=== PATIENT | male | born 1955 | race American Indian/Alaskan Native ===

== ENCOUNTER 2017-02-04 11:55 | Inpatient (IN) | payer MEDICAID, OTHER ==
[2017-02-04 13:19] LABS: BASO % 0.2 % (0.0-2.0); EOS # 0.2 K/uL (0.0-0.7); EOS % 2.5 % (0.0-4.0); HEMOGLOBIN 12.4 g/dL (12.0-18.0); LYMPH # 2.3 K/uL (1.0-4.3); MEAN CELL VOLUME 96.6 fL (80.0-94.0); MEAN CORPUSCULAR HEMOGLOBIN 31.5 pg (27.0-31.0); MEAN CORPUSCULAR HGB CONC 32.6 g/dL (33.0-37.0); MEAN PLATELET VOLUME 7.9 fL (7.2-11.7); MONO # 0.6 K/uL (0.0-0.8); MONO % 7.6 % (0.0-10.0); NEUT # 5.3 K/uL (1.8-7.0); NEUT % 62.7 % (50.0-75.0); NRBC % 0.1 % (0.0-2.0); RBC 3.92 Mil/uL (4.40-5.90); RED CELL DISTRIBUTION WIDTH 13.5 % (11.5-14.5); WHITE BLOOD COUNT 8.4 K/uL (4.8-10.8)
[2017-02-04 13:29] LABS: ALBUMIN 4.2 g/dL (3.5-5.0)
[2017-02-04 13:32] LABS: ALT/SGPT 32 U/L (21-72); AST/SGOT 38 U/L (17-59); BLOOD UREA NITROGEN 17 mg/dL (9-20); GFR AFRICAN-AMERICAN > 60; GFR NON-AFRICAN AMERICAN 56
[2017-02-04 13:33] LABS: GRANULAR CAST 3 /lpf (0-1); LIPASE 56 U/L (23-300); SQUAMOUS EPITHIAL 2 /hpf (0-5); URINE BACTERIA RARE (<OCC); URINE BILIRUBIN NEGATIVE (NEGATIVE); URINE BLOOD 1+ (NEGATIVE); URINE CLARITY Hazy (Clear); URINE COLOR Yellow (YELLOW); URINE GLUCOSE (UA) NORMAL (Normal); URINE LEUKOCYTE ESTERASE NEG Leu/uL (Negative); URINE NITRATE NEGATIVE (NEGATIVE); URINE PROTEIN 1+ mg/dL (NEGATIVE)
[2017-02-04 13:34] LABS: BENZODIAZEPINES, UR NEGATIVE (NEGATIVE)
[2017-02-04 13:35] LABS: BARBITURATES, UR NEGATIVE (NEGATIVE)
[2017-02-04 13:38] LABS: PHENCYCLIDINE, UR NEGATIVE (NEGATIVE)
--- NOTE | 2017-02-04 13:48 | C.PDOC ---
History Of Present Illness 61 y/o male, PMHx of heroin abuse, presents to ED for heroin detox. Patient pre- screened prior to arrival. Admits to last use this morning. Otherwise, patient c /o mild nausea. Denies any other complaints. Time Seen by Provider: 02/04/17 13:20 Chief Complaint (Nursing): Substance Abuse History Per: Patient History/Exam Limitations: no limitations Onset/Duration Of Symptoms: Persistent Current Symptoms Are (Timing): Still Present Modifying Factor(s): Narcotics Recent travel outside of the [place]: No Past Medical History Reviewed: Historical Data, Nursing Documentation, Vital Signs - Medical History PMH: HTN Family History: States: Unknown Family Hx - Social History Hx Alcohol Use: Yes Hx Substance Use: Yes Review Of Systems Except As Marked, All Systems Reviewed And Found Negative. Constitutional: Negative for: Fever, Chills Cardiovascular: Negative for: Chest Pain, Palpitations Respiratory: Negative for: Cough, Shortness of Breath Gastrointestinal: Negative for: Nausea, Vomiting, Abdominal Pain, Diarrhea Skin: Negative for: Rash Neurological: Negative for: Headache Physical Exam - Physical Exam Appears: Non-toxic, No Acute Distress Skin: Warm, Dry Head: Atraumatic, Normacephalic Eye(s): bilateral: Normal Inspection, PERRL, EOMI Oral Mucosa: Moist Neck: Normal ROM, Supple Chest: Symmetrical Cardiovascular: Rhythm Regular Respiratory: Normal Breath Sounds, No Rales, No Rhonchi, No Wheezing Gastrointestinal/Abdominal: Soft, No Tenderness, No Guarding, No Rebound Back: Normal Inspection Extremity: Normal ROM, Capillary Refill (< 2 sec. ) Neurological/Psych: Oriented x3, Normal Speech, Normal Cognition ED Course And Treatment - Laboratory Results Result Diagrams: 02/04/17 13:12 02/04/17 13:12 Disposition - Disposition Disposition: HOSPITALIZED Disposition Time: 13:48 Condition: STABLE - Clinical Impression Clinical Impression: Drug abuse - Scribe Statement The provider has reviewed the documentation as recorded by the Nick Venegas Provider Attestation: All medical record entries made by the Lanibsarah were at my direction and personally dictated by me. I have reviewed the chart and agree that the record accurately reflects my personal performance of the history, physical exam, medical decision making, and the department course for this patient. I have also personally directed, reviewed, and agree with the discharge instructions and disposition. Decision To Admit - Pt Status Changed To: Hospital Disposition Of: Inpatient - Admit Certification Admit to Inpatient:: After my assessment, the patient will require hospitalization for at least two midnights. This is because of the severity of symptoms shown, intensity of services needed, and/or the medical risk in this patient being treated as an outpatient. - InPatient: Physician Admission Certification: I certify that this patient requires 2 or more midnights of care for the following reason:: needs inpatient detox - . Bed Request Type: Detox Patient Diagnosis: Drug abuse
[2017-02-04 14:11] LABS: OPIATES, UR POSITIVE (NEGATIVE)
[2017-02-04] MEDS ORDERED: Potassium Chloride 20 mEq/15 ml LIQ UD PO STA (14:26)
[2017-02-04] MEDS ORDERED: Potassium Chloride 20 mEq ER Tab PO ONE (15:00)
[2017-02-04] MEDS ORDERED: Aluminum Hydroxide/Magnesium Hydroxide Susp (30 mL) PO PRN (16:35)
[2017-02-04] MEDS ORDERED: Buprenorphine Hydrochloride 2 mg SL ONE ×2 (20:38→21:59)
[2017-02-04] MEDS ORDERED: Buprenorphine Hydrochloride 2 mg SL SCH (20:45)
[2017-02-05] MEDS: Buprenorphine Hydrochloride 2 mg SL SCH (10:09)
--- NOTE | 2017-02-05 10:54 | PCM.PSYCH ---
Initial Psychiatric Evaluation - Initial Psychiatric Evaluation Type of Admission: Voluntary Legal Status: Capacity Chief Complaint (in patient's own words): "I'm tired of this" History of Present Illness and Precipitating Events: The pt is seen, chart reviewed and case discussed. 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 This is his first treatment whatsoever. His longest sobriety was only 1 week. He also has xanax use "few times" and used to use cocaine "years ago" by snorting. He smokes 10 cig/d Denies alcohol, all other drugs and painkillers Past psych hx: Denies Family psych hx: Denies Medical hx: Umblical hernia, HTN Current Medications: Active Medications Generic Name Dose Route Start Last Admin Trade Name Freq PRN Reason Stop Dose Admin Al Hydrox/Mg Hydrox/Simethicone 30 ml 02/04/17 16:35 Maalox 30 Ml PO TID PRN Indigestion / Heartburn Amlodipine Besylate 5 mg 02/05/17 10:00 02/05/17 10:09 Norvasc PO 5 mg DAILY DIANE Administration Buprenorphine HCl 8 mg 02/05/17 10:00 02/05/17 10:09 Subutex SL 02/09/17 09:59 8 mg DAILY DIANE Administration Taper Clonidine HCl 0.1 mg 02/04/17 16:35 Catapres PO Q8 PRN COWS Score More or Equal to 5 Hydrochlorothiazide 25 mg 02/05/17 10:00 02/05/17 10:11 Hydrodiuril PO 25 mg DAILY DIANE Administration Hydroxyzine HCl 25 mg 02/04/17 16:17 Atarax PO Q4H PRN Anxiety Ibuprofen 600 mg 02/04/17 16:17 Motrin Tab PO Q6H PRN Pain, moderate (4-7) Lisinopril 20 mg 02/05/17 10:00 02/05/17 10:10 Zestril PO 20 mg DAILY DIANE Administration Loperamide HCl 2 mg 02/04/17 16:35 Imodium PO Q8 PRN Diarrhea Nicotine 1 patch 02/05/17 10:00 02/05/17 10:08 Nicoderm Cq TD 1 patch DAILY DIANE Administration Ondansetron HCl 4 mg 02/04/17 16:35 02/04/17 19:40 Zofran Tab PO 4 mg Q8 PRN Administration Nausea/Vomiting Trazodone HCl 50 mg 02/04/17 22:00 02/04/17 22:19 Desyrel PO 50 mg HS DIANE Administration Past Psychiatric History - Past Psychiatric History Previous Treatment History: None Pertinent Medical Hx (Current Medical&Sleep Prob, Allergies): Allergies Allergy/AdvReac Type Severity Reaction Status Date / Time No Known Allergies Allergy Verified 02/04/17 12:07 Lisinopril/Hydrochlorothiazide [Lisinopril-Hydrochlorothiazide 25 mg-20 mg] 1 tab PO DAILY 02/04/17 amLODIPine [Norvasc] 5 mg PO DAILY 02/04/17 Review of Systems - Neurological Neurological: UNREMARKABLE - Psychiatric Psychiatric: Abnormal Sleep Pattern, Anxiety, Difficulty Concentrating. absent : Depression, Hallucinations, Homicidal Ideation, Suicidal Ideation Mental Status Examination - Personal Presentation Personal Presentation: Looks stated age - Affect Affect: Constricted - Motor Activity Motor Activity: Calm - Reliability in Providing Information Reliability in Providing Information: Good - Speech Speech: Organized - Mood Mood: Anxious - Formal Thought Process Formal Thought Process: No Impairment - Cognitive Functions Orientation: Person, Place, Situation, Time Sensorium: Alert Attention/Concentration: Attentive Estimate of Intelligence: Average Judgement: Intact, as evidence by: Insight regarding need for hospitalization Memory: Recent intact, as evidence by: Ability to recall events of the day, Remote intact, as evidenced by: Abilit to recall sig. 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
[2017-02-05 12:09] LABS: GFR AFRICAN-AMERICAN > 60; GFR NON-AFRICAN AMERICAN 52
[2017-02-05 12:10] LABS: ALT/SGPT 25 U/L (21-72); AST/SGOT 29 U/L (17-59); BLOOD UREA NITROGEN 20 mg/dL (9-20); CALCIUM 9.8 mg/dl (8.6-10.4)
[2017-02-05 12:11] LABS: MAGNESIUM 2.2 mg/dL (1.6-2.3)
[2017-02-06] MEDS: Buprenorphine Hydrochloride 2 mg SL SCH (09:58)
[2017-02-06] MEDS ORDERED: Ergocalciferol 50,000 Intl Units Cap PO SCH (11:15)
[2017-02-06] MEDS ORDERED: Magnesium Hydroxide Susp 30 ml UD PO ONE (13:28)
--- NOTE | 2017-02-06 13:28 | PCM.PYCHPN ---
Psychiatric Progress Note - Psychiatric Progress Note Patient seen today, length of contact: 17 min Patient Chief Complaint: "I'm better today" Problems Identified/Issues Discussed: The pt is seen, chart reviewed, case discussed with staff. Support given, CBT and NM used briefly No new symptoms reported, improving slowly and needs more time No SEs from medications, risks discussed. After care discussed - considering rehab at [facility] c/o constipation Medication Change: Yes (detox changes daily) Medical Record Reviewed: Yes Mental Status Examination - Cognitive Function Orientation: Person, Place, Situation, Time Memory: Intact Attention: WNL Concentration: Poor Association: WNL Fund of Knowledge: WNL - Mood Mood: Anxious - Affect Affect: Constricted - Speech Speech: Appropriate - Formal Thought Process Formal Thought Process: No Impairment - Suicidal Ideation Suicidal Ideation: No - Homicidal Ideation Homicidal Ideation: No Goal/Treatment Plan - Goal/Treatment Plan Need for Continued Stay: Discharge may exacerbated symptoms, Severe functional impairment Progress Toward Problem(s) and Goals/Treatment Plan: Opioids: Subutex detox As needed meds Attend groups and activities Indiv tx with NM and CBT Refer to [facility] and rehab/IOP Sedatives: Monitor sxs NM for abstinence Tobacco: NM for abstinence Patch if needed MOM for constipation Estimated Date of D/C: 02/09/17 - Smoking Cessation Smoking Cessation Initiated: Yes
[2017-02-07] MEDS: Buprenorphine Hydrochloride 2 mg SL SCH (09:40)
[2017-02-07 15:43] VITALS: RESP 18
--- NOTE | 2017-02-07 17:28 | PCM.PYCHPN ---
Psychiatric Progress Note - Psychiatric Progress Note Patient seen today, length of contact: 15 min Patient Chief Complaint: "I'm OK" Problems Identified/Issues Discussed: The pt is seen, chart reviewed, case discussed with staff. Support given, CBT and VA used briefly No new symptoms reported, improving slowly and needs some more time No SEs from medications, risks discussed. After care discussed Medication Change: Yes (detox changes daily) Medical Record Reviewed: Yes Mental Status Examination - Cognitive Function Orientation: Person, Place, Situation, Time Memory: Intact Attention: WNL Concentration: Poor Association: WNL Fund of Knowledge: WNL - Mood Mood: Anxious - Affect Affect: Constricted - Speech Speech: Appropriate - Formal Thought Process Formal Thought Process: No Impairment - Suicidal Ideation Suicidal Ideation: No - Homicidal Ideation Homicidal Ideation: No Goal/Treatment Plan - Goal/Treatment Plan Need for Continued Stay: Discharge may exacerbated symptoms, Severe functional impairment Progress Toward Problem(s) and Goals/Treatment Plan: Opioids: Subutex detox As needed meds Attend groups and activities Indiv tx with VA and CBT Refer to [facility] and rehab/IOP Sedatives: Monitor sxs VA for abstinence Tobacco: VA for abstinence Patch if needed MOM for constipation Estimated Date of D/C: 02/09/17
[2017-02-08] MEDS: Buprenorphine Hydrochloride 2 mg SL SCH (09:29)
--- NOTE | 2017-02-08 14:05 | PCM.PYCHPN ---
Psychiatric Progress Note - Psychiatric Progress Note Patient seen today, length of contact: 15 min Patient Chief Complaint: I'm feeling much better with the treatment Problems Identified/Issues Discussed: Patient seen. Chart reviewed. Case discussed with the staff. Issues related to illness and treatment were discussed with the patient. Reported compliant with treatment with no adverse affects. Tolerating treatment very well. Reported feeling much better with no withdrawal symptoms. At the time of evaluation, patient was awake alert oriented 3, had no delusions, no auditory or visual hallucinations, no suicidal ideations or homicidal ideations. Medical Problems: None reported Diagnostic Results: Review DSM 5 Symptoms Update: Improvement with treatment Medication Change: No Medical Record Reviewed: Yes Mental Status Examination - Cognitive Function Orientation: Person, Place, Situation, Time Memory: Intact Attention: WNL Concentration: WNL Association: WN Fund of Knowledge: [facility] Decription of patient's judgement and insights: Fair - Mood Mood: Neutral - Affect Affect: Other (Appropriate) - Speech Speech: Appropriate - Formal Thought Process Formal Thought Process: No Impairment Psychotic Thoughts and Behaviors: None - Suicidal Ideation Suicidal Ideation: No - Homicidal Ideation Homicidal Ideation: No Goal/Treatment Plan - Goal/Treatment Plan Need for Continued Stay: Remain at risks for inpatient hospitalization, Discharge may exacerbated symptoms, Severe functional impairment Progress Toward Problem(s) and Goals/Treatment Plan: Patient education Supportive therapy Continue treatment as before Patient wants to go to [facility] after discharge from the hospital for follow-up care. Estimated Date of D/C: 02/09/17 - Smoking Cessation Smoking Cessation Initiated: Yes
--- NOTE | 2017-02-09 08:51 | PCM.PYCHDC ---
Mental Status Examination - Mental Status Examination Orientation: Person, Place, Situation, Time Memory: Intact Mood: Anxious Affect: Constricted Speech: Appropriate Attention: WNL Concentration: WNL Association: WNL Fund of Knowledge: WNL Formal Thought Process: No Impairment Suicidal Ideation: No Current Homicidal Ideation?: No Discharge Summary - Discharge Note Reason for Hospitalization: Opioid detox Consultations:: List each consultation separately and include: 1. Reason for request. 2. Findings. 3. Follow-up Summary of Hospital Course include:: 1. Description of specific treatment plan utilized for patients during their course of treatmen. 2. Summarize the time- course for resolution of acute symptoms and/or regressed behaviors. 3. Describe issues identified and worked on during hospitalization. 4. Describe medication utilized. 5. Describe medical problems identified and treated. 6. Reassessment of suicide risk Summary of Hospital Course: On admission: The pt is seen, chart reviewed and case discussed. 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 This is his first treatment whatsoever. His longest sobriety was only 1 week. He also has xanax use "few times" and used to use cocaine "years ago" by snorting. He smokes 10 cig/d Denies alcohol, all other drugs and painkillers Past psych hx: Denies Family psych hx: Denies Medical hx: Umblical hernia, HTN Hospital course: The pt was admitted and started on treatment with psychotherapy, support, psychoeducation and medications. HI and CBT used. The pt attended groups and activities, as well as milieu therapy. All the risks and benefits of medications are discussed and the patient understood and agreed. The pt improved with the treatments provided. After care discussed with the patient. 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 Follow after care plan as discussed. [facility] Use relapse prevention skills Return to ER or call 911 if suicidal, homicidal or symptoms relapse. Stay away from stress, alcohol and drugs. See primary doctor once a year. Prescriptions/Medication Reconciliation: amLODIPine [Norvasc] 5 mg PO DAILY #30 tab Ergocalciferol [Drisdol 50,000 Intl Units Cap] 1 cap PO Q7D #4 cap hydroCHLOROthiazide [Hydrodiuril] 25 mg PO DAILY #30 tab Lisinopril [Zestril] 20 mg PO DAILY #30 tab traZODone [Desyrel] 50 mg PO HS #30 tab
[2017-02-09 11:09] VITALS: BP 138/80; PULSE 100; TEMP 97.7; O2SAT 98
== END 2017-02-09 10:00 | DRG 745 ==
LOC: C.ER 11:55 → C.7D 14:28
PROVIDERS: ADMIT Psychiatry & Neurology Psychiatry; ATTEND Psychiatry & Neurology Psychiatry
PROC: HZ2ZZZZ Detoxification Services for Substance Abuse Treatment (ICD-10-PCS; principal; 2017-02-04)
PROC: HZ42ZZZ Group Counseling for Substance Abuse Treatment, Cognitive-Behavioral (ICD-10-PCS; 2017-02-04)
DX: F11.23 Opioid dependence with withdrawal (principal); I10 Essential (primary) hypertension; F17.200 Nicotine dependence, unspecified, uncomplicated; F14.90 Cocaine use, unspecified, uncomplicated